=== PATIENT | male | born 1985 | race Caucasian/White ===

== ENCOUNTER → 2016-09-20 | Day surgery (SDC) | payer BC ==
[~2016-09-20] MED LIST: BUPIVACAINE/EPINEPHRINE 0.25% PF 30 ML VIAL ONE; KETOROLAC TROMETHAMINE 30 MG/ML (IVP) VIAL IV PUSH ONE; LACTATED RINGER'S 1000 ML INJ 1,000 ML ONE; MIDAZOLAM HCL 2 MG/2 ML VIAL ONE; ONDANSETRON HCL 4 MG/2 ML VIAL IV PUSH ONE; OXYC30TA3 PO; PROPOFOL 200 MG/20 ML AMP IV ONE; TRIAMCINOLONE ACETONIDE 40 MG/ML VIAL ONE; ZITHTAB6 PO; ceFAZolin INJ 1,000 MG VIAL ONE
--- NOTE | 2016-09-23 09:56 | MP ---
cc: LUCIANO LOPEZ DATE OF SURGERY: 09/20/2016 PREOPERATIVE DIAGNOSIS: Right knee Buckle handle lateral meniscus tear. POSTOPERATIVE DIAGNOSIS: Right knee Buckle handle lateral meniscus tear. SURGEON: Luciano Lopez MD. SPEECH INSTRUCTOR: FLORNECIA Mckeon SPEECH INSTRUCTOR FLORENCIA Culver The surgical procedure was assisted by my Advanced Registered Nurse Practitioner. My TRAINMASTER presence was necessary throughout this case for the manipulation and positioning of the surgical extremity. My TRAINMASTER was assisting me throughout the duration of this procedure. The skill set of an Advance Registered Nurse Practitioner was medically necessary to complete this procedure. During the surgical case, the surgical aide was working at the back table and the Advance Registered Nurse Practitioner was directly assisting me. PROCEDURE: Right knee arthroscopy with partial lateral meniscectomy. ANESTHESIA General anesthesia PROCEDURE The patient was brought back to operative theater. General anesthesia was administered. Received intravenous Ancef. The right lower extremity was prepped and draped in usual sterile fashion. We had a well-padded nonsterile tourniquet applied but we did not use it during the case. We started standard inferolateral portal for diagnostic arthroscopy followed by inferomedial portal under spinal needle visualization. We found that there was diffuse synovitis in suprapatellar pouch of a moderate degree. There was a small area of unstable cartilage that was floating around inside the suprapatellar pouch which was removed. We inspected patellofemoral joint which was otherwise fairly unremarkable with no significant chondromalacia evaluation of the medial compartment showed the medial meniscus was intact in the medial compartment did not have significant chondromalacia. The anterior so ligament was found to be intact. Evaluation of the lateral compartment revealed that there was a lateral meniscus tear which when we probed, it was a bucket handle in nature and subluxed into the anterior aspect of the joint. This was consistent with this patient's symptomatology. Unfortunately the meniscus was an rather poor condition from multiple subluxation events and being compressed in the lateral compartment. Based on the condition of the meniscus. It was deemed that we could not proceed with a repair to poor quality of this tissue. Note that we did not see significant chondromalacia lateral compartment of the femur or the tibia. We therefore, therefore decided to perform partial lateral meniscectomy. We did this by using an arthroscopic scissor to cut back by the posterior horn which was significantly frayed and torn and then we used an oscillating shaver to debride the meniscus from the posterior horn through the body region. As we had to about the midbody the tear became more of a cleavage where the undersurface was more unstable and we debrided the superior surface was more stable was some inner edge tearing by the body and the anterior horn. Ultimately removed about 50% of the meniscus from the midbody back to the posterior horn. We removed it all the way back to the capsule and we easily visualized the popliteus tendon which was intact. There was a significant synovitis of the posterior capsule. There is some mild bleeding noted. We confirmed there no loose bodies in the medial lateral gutter. We then closed the knee with 2-0 Vicryl followed by 3-0 nylon and interarticular injection of 0.25% Marcaine was given with 40 mg of Kenalog. The leg was dressed. Postop plan is weight bear as tolerated and early range of motion. MD ROMAIN Oliveira/tan /4:05 PM /9:34 AM
== END | disposition home or self-care (01) ==
LOC: ESDC 13:27
PROVIDERS: ATTEND Orthopaedic Surgery
DX: S83.251A Bucket-handle tear of lateral meniscus, current injury, right knee, initial encounter (principal)
CPT/HCPCS: 01400; 29881; J0690; J1885; J2250; J2405; J3010; J3301; J7120